=== PATIENT | male | born 1960 | race Caucasian/White ===

== ENCOUNTER 2024-12-25 22:30 | Emergency (ER) | payer MEDICARE, MEDICAID, SELFPAY ==
[2024-12-25 22:31] VITALS: BMI 24.3
--- NOTE | 2024-12-25 22:37 | EKG_ITS ---
[facility] Test Date: 2024-12-25 Pat Name: LAMONT SPAIN Department: Room: - Gender: Male [employer]: : 1960 Requested By: Quique Batista Order Number: [id number] Reading MD: Quique Batista Measurements Intervals [place] Rate: 71 P: 23 LA: 137 QRS: 13 QRSD: 84 T: 63 QT: 395 QTc: 431 Interpretive Statements SINUS RHYTHM ST ELEVATION, CONSIDER INFERIOR INJURY [MARKED ST ELEVATION W/O NORMALLY INFLECTED T-WAVE IN II/aVF] ACUTE CA No previous ECG available for comparison /store/S0/[id number].pdf
[2024-12-25 22:59] VITALS: BP 112/74; PULSE 71; RESP 28; TEMP 36.7; O2SAT 93
--- NOTE | 2024-12-25 23:02 | EDNOTE_ITS ---
ED SOB =RME/HPI General Chief Complaint: Shortness of Breath/Dyspnea Stated Complaint: sob Time Seen by Provider: 12/25/24 22:49 Arrival date/time: 12/25/24 22:30 RME / HPI RME / HPI Narrative: This section includes all my notes and documentations, including HPI, PE, and ED course. Austin Barton MD HPI: 64-year-old male here with about a week history of worsening cough, productive cough, purulent sputum, and dyspnea. No fever. No chest pain. No other complaints. ROS: All negative except as documented in HPI. Physical Exam: General: Alert and oriented. In mild respiratory distress. Eyes: Conjunctivae and lids clear. ENT: No nasal congestion. Neck: Supple. Heart: RRR. Lungs: Mild respiratory distress. Severely decreased air movement with diffuse wheezing. Skin: Warm and dry. Neuro: Alert and oriented X 3. I reviewed all diagnostic test results. My interpretation of the EKG is sinus rhythm with no acute ST?T changes. My interpretation of the chest x-ray is no acute findings. Blood tests unremarkable, including negative troponin/D-dimer/BNP. COVID/influenza negative. At this point, diagnoses include COPD exacerbation. Treatment here included Solu-Medrol and MgSO4 2 gram IV and neb treatments and Zithromax and Ativan to help with the side effects. Significant improvement noted. Recommended a trial of outpatient treatment. Based on my best medical judgment, made decision no further evaluation or treatment indicated at this time. Patient understands and agrees to the discharge instructions customized and printed, see below. Discharge instructions from Dr. Barton: --No physical exertion for 3 days to help rest the lungs. ?No smoking or exposure to smoking or pets or dust or cold air. --Zithromax to kill the germs causing the bronchitis COPD flare. --Prednisone to help decrease the swelling in the airways. --Albuterol 2 puffs every 4-6 hours for 3 days to help keep the airways open. Then as needed for cough or shortness of breath. --See a private doctor on 12/31/2024 if not completely better. --Seek immediate medical care with worsening or with any concerns. Austin Barton MD Related Data Previous Rx's ?Medication ?Instructions ?Recorded albuterol sulfate 90 mcg/actuation 2 puff inhalation Q 6H PRN 12/26/24 aerosol inhaler shortness of breath or wheez ing #8.5 grams azithromycin 500 mg tablet 500 mg PO QDAY 3 days #3 ta bs 12/26/24 (Zithromax TRI-BEE) prednisone 20 mg tablet 40 mg PO BID 3 days #12 tabs 12/26/24 Allergies Allergy/AdvReac Type Severity Reaction Status Date / Time Penicillins Allergy Vomiting Verified 08/20/23 16:09 Course Quality Measures none Orders Category Date Time Status Bedside COVID-19 Antigen Test NOW Care 12/25/24 23:02 Active Bedside Influenza A&B Antigen Test NOW Care 12/25/24 23:02 Completed EKG (ED ONLY) *Do not use* NOW Care 12/25/24 22:37 Completed Saline [Insert IV] NOW Care 12/25/24 23:02 Active EKG (ED Only) Stat Exams 12/25/24 22:37 Draft XR chest 1V portable Stat Exams 12/25/24 23:04 Completed ABG [Arterial Blood Gas] Stat Lab 12/25/24 23:04 Ordered BNP [B-Type Natriuretic Peptide] Stat Lab 12/25/24 23:11 Completed CBC Stat Lab 12/25/24 23:11 Completed CMP [Comprehensive Metabolic Panel] Stat Lab 12/25/24 23:11 Completed D-Dimer Stat Lab 12/25/24 23:11 Completed Magnesium Stat Lab 12/25/24 23:11 Completed TSH [Thyroid Stimulating Hormone] Stat Lab 12/25/24 23:11 Completed Troponin I Stat Lab 12/25/24 23:11 Completed Albuterol/Ipratr Rt Harriett [Duoneb Rt Harriett] Med 12/25/24 23:02 Discontinued 3 ml INH X1 ONE Azithromycin Po [Zithromax PO] Med 12/26/24 00:33 Discontinued 500 mg PO X1 ONE LORazepam [Ativan Inj] Med 12/25/24 23:02 Discontinued 0.75 mg IVP X1 ONE Levalbuterol Rt [Xopenex Rt Harriett] Med 12/25/24 23:02 Discontinued 1.25 mg INH X1 ONE Magnesium Sulfate 2 GM Ivpb [Magnesium Sulfate Ivpb] Med 12/25/24 23:02 Active 2 gm in 50 ml IV X1 MethylPREDNISolone.* [SoluMEDROL Inj] Med 12/25/24 23:02 Discontinued 125 mg IVP X1 ONE Sodium Chloride Rt Harriett 0.9% [NS Rt Harriett 0.9%] Med 12/25/24 23:02 Active 6 ml INH PRN PRN Vital Signs Vital signs: Vital Signs Temperature 98.1 F 12/25/24 22:59 Pulse Rate 71 12/25/24 22:59 Respiratory Rate 28 H 12/25/24 22:59 Blood Pressure 112/74 12/25/24 22:59 Pulse Oximetry (%) 93 L 12/25/24 22:59 Oxygen Delivery Method Room Air 12/25/24 22:59 Shortness of Breath / Dyspnea Patient data External records reviewed:: None Clinical information provided by:: patient and spouse Social determinants that could affect healthcare access:: none Patient has the following chronic illnesses:: COPD How is presenting disease/condition affected by chronic disease/condition?: exacerbated by Evaluation data The following diagnostics were reviewed and interpreted by me:: lab results, radiology exam(s) and EKG tracing(s) Lab and/or radiology exams considered but not ordered:: None Interpretation Summary: COPD exacerbation Medications / Prescriptions Medications or Prescriptions considered but not ordered:: None Medication administrations:: Medication Administration History Magnesium Sulfate (Magnesium Sulfate Ivpb) 2 gm in 50 mls @ 25 mls/hr IV X1 ONE Stop: 12/26/24 01:01 Last Admin: 12/25/24 23:21 Dose: 25 mls/hr Documented By: KG Sodium Chloride (Sodium Chloride Rt Harriett 0.9% 3 Ml Nebu) 6 ml INH PRN PRN PRN Reason: SOLN Stop: 01/24/25 23:01 Discontinued Medications Albuterol/Ipratropium (Albuterol/Ipratropium (Duoneb) Rt Harriett 3 Ml Nebu) 3 ml INH X1 ONE Stop: 12/25/24 23:03 Last Admin: 12/25/24 23:23 Dose: 3 ml Documented By: NE Azithromycin (Azithromycin 250 Mg Tablet) 500 mg PO X1 ONE Stop: 12/26/24 00:34 Levalbuterol HCl (Levalbuterol Rt 1.25 Mg/0.5 Ml Nebu) 1.25 mg INH X1 ONE Stop: 12/25/24 23:03 Last Admin: 12/25/24 23:32 Dose: 1.25 mg Documented By: NE Lorazepam (Lorazepam 2 Mg/Ml Vial) 0.75 mg IVP X1 ONE Stop: 12/25/24 23:03 Last Admin: 12/25/24 23:19 Dose: 0.75 mg Documented By: KG Methylprednisolone Sodium Succinate (Methylprednisolone Sod Succ 62.5 Mg/Ml 2ml Vial) 125 mg IVP X1 ONE Stop: 12/25/24 23:03 Last Admin: 12/25/24 23:18 Dose: 125 mg Documented By: KG Solu-Medrol and MgSO4 2 gram IV and neb treatments and Zithromax and Ativan Consultations Consultation(s) initiated? (list below): No Diagnosis Shortness of Breath Differential Diagnosis: acute exacerbation of chronic obstructive airways disease, congestive heart failure, community acquired pneumonia, asthma with exacerbation and pulmonary embolism Most likely diagnosis given after review of the tests above:: COPD exacerbation Admission Indicated Admission indicated?: not indicated Explain why admission is indicated or not indicated:: With significant improvement, there was no indication for admission. Admission Request Was there a request for admission?: No Disposition Plan Disposition Plan: Discharge Discharge Attestation Discharge Attestation: The patient and all family members were given an opportunity to ask questions and understood the discharge instructions. Discharge instructions specifically effects, indications for sooner follow up or return to the emergency department, and the expected course of current diagnosis. Patient condition: Stable Discharge Plan Plan Patient Disposition: HOME (Self Care) Prescriptions/Referrals Prescriptions/Med Rec: New prednisone 20 mg tablet 40 mg PO BID 3 Days Qty: 12 0RF Taper: Prednisone Taper 20 mg DAILY for 2 Days and 0 Hour 10 mg DAILY for 2 Days and 0 Hour 5 mg DAILY for 7 Days and 0 Hour albuterol sulfate 90 mcg/actuation HFA aerosol inhaler 2 puff inhalation Q6H PRN (Reason: shortness of breath or wheezing) Qty: 8.5 0RF azithromycin [Zithromax TRI-BEE] 500 mg tablet 500 mg PO QDAY 3 Days Qty: 3 0RF Problem List Clinical Impression: COPD exacerbation Patient/Caregiver Discharge Instructions Discharge Activity: activity as tolerated Education Materials: ED COPD Flare Additional Instructions: Discharge instructions from Dr. Barton: --No physical exertion for 3 days to help rest the lungs. ?No smoking or exposure to smoking or pets or dust or cold air. --Zithromax to kill the germs causing the bronchitis COPD flare. --Prednisone to help decrease the swelling in the airways. --Albuterol 2 puffs every 4-6 hours for 3 days to help keep the airways open. Then as needed for cough or shortness of breath. --See a private doctor on 12/31/2024 if not completely better. --Seek immediate medical care with worsening or with any concerns. Print Language: Ukrainian Stand Alone Forms: [employer]ul[employer] Award Info., Patient Portal Info Letter
--- NOTE | 2024-12-25 23:04 | XR_ITS ---
Examination: AP chest single view Technique one AP portable upright chest single view Exam date 9: December 25, 2024 11:23 PM INDICATIONS: Shortness of breath today. FINDINGS: Subsegmental atelectasis left base Normal heart size Moderate elevation left hemidiaphragm No pneumonia or pulmonary edema IMPRESSION: No pneumonia or pulmonary edema
[2024-12-25] MEDS: MethylPREDNISolone SOD SUCC 62.5 MG/ML 2ML VIAL 125 MG IVP (23:18)
[2024-12-25] MEDS: LORazepam 2 MG/ML VIAL 0.75 MG IVP (23:19)
--- NOTE | 2024-12-25 23:20 | PC.NURSE ---
XRAY at the bedside.
[2024-12-25] MEDS: Magnesium Sulfate 2 GM Ivpb 2 GM/50 ML BAG IV (23:21)
[2024-12-25 23:23] VITALS: PULSE 69; RESP 16; O2SAT 98
[2024-12-25] MEDS: ALBUTEROL/IPRATROPIUM (Duoneb) RT SOL 3 ML NEBU INH (23:23)
--- NOTE | 2024-12-25 23:24 | PC.NURSE ---
RT at the bedside for breathing tx.
[2024-12-25 23:32] VITALS: PULSE 69; RESP 18; O2SAT 95
[2024-12-25 23:32] LABS: Basophils # (Auto) 0.1 Thou/mm3 (0.0-0.2); Basophils % (Auto) 1 % (0-2.5); Eosinophils # (Auto) 0.3 Thou/mm3 (0.0-0.5); Eosinophils % (Auto) 3 % (0-10); Hematocrit 45.4 % (41.0-53.0); Hemoglobin 15.4 g/dL (13.5-16.0); Immature Granulocytes % (Auto) 0 % (0-0); Immature Granulocytes Auto 0.02 Thou/mm3 (0.00-0.00); Lymphocytes # (Auto) 3.7 Thou/mm3 (1.0-4.8); Lymphocytes % (Auto) 37 % (10-50); Mean Corpuscular HGB Conc 33.9 g/dl (31.0-37.0); Mean Corpuscular Hemoglobin 31.2 pg (25.0-35.0); Mean Corpuscular Volume 92 fL (80-100); Monocytes # (Auto) 0.8 Thou/mm3 (0.0-0.8); Monocytes % (Auto) 8 % (0-12); Neutrophils # (Auto) 5.1 Thou/mm3 (1.8-7.7); Neutrophils % (Auto) 51 % (37-80); Nucleated Red Blood Cell % 0 /100 WBC (0); Platelet Count 343 Thou/mm3 (140-440); RDW Standard Deviation 46.1 fL (35.1-43.9); Red Blood Count 4.94 Miln/mm3 (4.50-5.90)
[2024-12-25] MEDS: LEVALBUTEROL RT 1.25 MG/0.5 ML NEBU INH (23:32)
[2024-12-25 23:47] LABS: D-Dimer 890 ng/mL (<600)
[2024-12-25 23:51] LABS: B-Type Natriuretic Peptide 29 pg/mL (0-100)
[2024-12-25 23:54] LABS: Alanine Aminotransferase 21 U/L (10-49); Albumin, Serum 4.3 gm/dL (3.4-4.8); Albumin/Globulin Ratio 1.3 (1.2-2.2); Alkaline Phosphatase 68 U/L (46-116); Anion Gap 10 (7-16); Aspartate Amino Transferase 26 U/L (0-34); BUN/Creatinine Ratio 15 Ratio (12-20); Bilirubin,Total 0.4 mg/dL (0.3-1.2); Blood Urea Nitrogen 16 mg/dL (9-23); Calcium 9.8 mg/dL (8.3-10.6); Calcium (Corrected) 9.8 mg/dL (8.5-10.1); Carbon Dioxide 23.9 mMol/L (20.0-31.0); Chloride 105 mMol/L (98-107); Creatinine (Component) 1.1 mg/dL (0.6-1.3); Estimated Creatinine Clearance 69.1 mL/min (>60); Globulin 3.2 gm/dL (2.3-3.5); Glucose 88 mg/dL (74-106); Magnesium 1.9 mg/dL (1.6-2.6); Osmolality,Calculated 277 (275-295); Sodium 139 mMol/L (136-145); Thyroid Stimulating Hormone 2.02 uIU/mL (0.55-4.78); Total Protein 7.5 gm/dL (5.7-8.2); Troponin I < 0.020 ng/mL (0.0-0.045); eGFR > 60 See Note
[2024-12-26] MEDS: AZITHROMYCIN 250 MG TABLET 500 MG PO (00:51)
[2024-12-26 00:58] VITALS: BP 120/83; PULSE 70; RESP 19; O2SAT 94
== END 2024-12-26 00:58 | disposition home or self-care (01) ==
LOC: SERX 12-26 01:51
PROVIDERS: Emergency Provider Emergency Medicine
DX: J44.1 Chronic obstructive pulmonary disease with (acute) exacerbation (principal)
CPT/HCPCS: 36415; 36600; 71045; 80053; 82803; 83735; 83880; 84443; 84484; 85025; 85379; 87400; 87811; 93005; 94640; 96365; 96366; 96375; 99284; A9270; J2060; J2919; J3475